=== PATIENT | male | born 1965 | race Caucasian/White ===

== ENCOUNTER 2020-06-15 22:07 | Emergency (ER) | payer MEDICAID ==
[2020-06-15] MEDS ORDERED: Diphtheria,Pertussis(Acell),Tetanus Vaccine 0.5 ML Syringe IM ONE (22:54)
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
== END 2020-06-15 23:30 | disposition home or self-care (01) ==
LOC: DL.ED 22:07
DX: S06.0X0A Concussion without loss of consciousness, initial encounter (principal); S01.01XA Laceration without foreign body of scalp, initial encounter; J43.9 Emphysema, unspecified; Z23 Encounter for immunization; Z72.0 Tobacco use; Z88.0 Allergy status to penicillin; W22.8XXA Striking against or struck by other objects, initial encounter
CPT/HCPCS: 70450; 90471; 90715; 99284; 99284-25

== ENCOUNTER 2020-07-26 19:28 | Emergency (ER) | payer MEDICAID | END 2020-07-26 21:07 | disposition left against medical advice (07) | LOC: DL.ED 19:28 | DX: J44.9 Chronic obstructive pulmonary disease, unspecified (principal); Z53.21 Procedure and treatment not carried out due to patient leaving prior to being seen by health care provider ==

== ENCOUNTER 2021-08-06 20:45 | Emergency (ER) | payer MEDICAID ==
[2021-08-06 23:12] LABS: ANION GAP 15.1 mEq/L (7-13); CHLORIDE,CL 110 mmol/L (98-107); SODIUM,NA 146 mmol/L (136-145)
== END 2021-08-07 00:02 | disposition left against medical advice (07) ==
LOC: DL.ED 20:45
DX: I73.9 Peripheral vascular disease, unspecified (principal); G63 Polyneuropathy in diseases classified elsewhere; J44.9 Chronic obstructive pulmonary disease, unspecified; F17.210 Nicotine dependence, cigarettes, uncomplicated; Z88.0 Allergy status to penicillin
CPT/HCPCS: 36415; 80053; 83605; 83880; 85025; 85379; 99283